=== PATIENT | female | born 1990 | race Caucasian/White ===

== ENCOUNTER 2019-03-31 07:04 | Inpatient (IN) | payer MEDICAID ==
[2019-03-31] MEDS ORDERED: Lactated Ringer's 1,000 ML IV ONE (07:25)
[2019-03-31] MEDS ORDERED: Lactated Ringer's 1,000 ML IV SCH (07:30)
[2019-03-31] MEDS ORDERED: OXYTOCIN/0.9 % NS 20 UNIT/1,000 ML BAG IV ONE (07:38)
[2019-03-31] MEDS ORDERED: Oxytocin 30 UNIT in NS 500 ml 30 UNITS/500 ML BAG IV ONE (07:38)
[2019-03-31] MEDS ORDERED: ceFAZolin 2 GM in Sodium Chloride 0.9% 100 ML IVPB ONE (07:45)
[2019-03-31 07:48] VITALS: O2SAT 100
[2019-03-31 07:58] LABS: BASO # 0.1 K/uL (0.0-0.2); BASO % 1.1 % (0.0-2.0); EOS # 0.1 K/uL (0.0-0.7); EOS % 0.7 % (0.0-4.0); HEMOGLOBIN 11.4 g/dL (12.0-16.0); LYMPH # 1.3 K/uL (1.0-4.3); LYMPH % 17.4 % (20.0-40.0); MEAN CELL VOLUME 81.2 fl (81.0-99.0); MEAN CORPUSCULAR HEMOGLOBIN 26.6 pg (27.0-31.0); MEAN CORPUSCULAR HGB CONC 32.8 g/dL (33.0-37.0); MEAN PLATELET VOLUME 9.6 fl (7.2-11.7); MONO # 0.7 K/uL (0.0-0.8); MONO % 8.7 % (0.0-10.0); NEUT # 5.4 K/uL (1.8-7.0); NEUT % 72.1 % (50.0-75.0); NRBC % 0.1 % (0.0-0.0); RBC 4.29 Mil/uL (3.80-5.20); RED CELL DISTRIBUTION WIDTH 15.1 % (11.5-14.5); WHITE BLOOD COUNT 7.5 K/uL (4.8-10.8)
[2019-03-31] MEDS ORDERED: Lidocaine 1% Inj (20ml) ONE (10:58)
[2019-03-31] MEDS ORDERED: Morphine 5 mg/10 ml preservative-free Inj(Duramorph) ONE (11:21)
[2019-03-31] MEDS ORDERED: Bupivacaine 0.25% 300 ML in Sodium Chloride 0.9% 300 ML IS ONE ×2 (11:30→13:06)
--- NOTE | 2019-03-31 12:37 | OBADHP ---
Datetime: 03/31/2019 07:30 Admit Comment, IP Provider: 28 y/o female at 40 wks GA presents to L_D for a scheduled c-sectio n due to macrosomia. Patient denies VF, VB. Endorses movements. Does not have any complaints at this time. OB: Dr. Tran Pmhx: denies HomeRx: vitamins Allergies: denies Socialhx: denies toxic habits SurgHx: denies Famhx: Maternal grandmother w/ hx of HTN ROS: all systems reviewed and negative except per HPI PhysicalExam: Gen: No acute distress Heart: S1/S2 present, RRR Lungs: normal breathing effort, clear to auscultation bilaterally Abd: Gravid, normal bowel sounds, soft, non-tender Extremities: no swelling/erythema/tenderness Psych: appropriate mood, good eye contact Assessment and Plan 28 y/o female at 40 wks IUP GBS neg, HIV neg, RPR neg, HBsAg neg, GC/C neg, rubella immune, O+ ab- Admit to LD cbc and type and screen Ancef 2gm IV Anesthesiology consulted NPO SCDs Case discussed w/ attending bee Bryant Pelvic Type - PN: Not Done Extremities - PN: Normal Abdomen - PN: Normal Back - PN: Not Done Breast - PN: Not Done Lungs - PN: Normal Heart - PN: Normal Thyroid - PN: Not Done Neurologic - PN: Not Done HEENT - PN: Not Done General - PN: Normal Weight - Estimated: 3586 FHR - Baseline A Provider: 140 Contraction Comments Provider: occasional Gestation - Est Wks by US: 40.0 IP Hx Assessment: The History has been Reviewed and is Current Vital Signs Provider: Reviewed; Within Normal Limits IP Chief Complaint: Scheduled Section NICHD Variability Prov Fetus A: Moderate 6-25bpm NICHD Decel Fetus A IP Provider: None Genitourinary Exam: Normal DTRs - PN: Not Done IP Adm Impression: Term, intrauterine IP Admit Plan: Admit to unit; Initiate Section protocol
[2019-03-31] MEDS ORDERED: Oxycodone/Acetaminophen 5/325 mg Tab PO PRN ×3 (12:43→15:41)
--- NOTE | 2019-03-31 12:45 | OBDS ---
DELIVERY PERSONNEL Delivery Doctor: Erwin Tran MD Scrub Nurse: Rika Jamison OBT Office Machine Service Supervisor: Berta Simpson RN Anesthesiologist: MATERNAL INFORMATION Delivery Anesthesia: Spinal Medications in Delivery: Pitocin 30 Placenta Cultured: No Maternal Complications: None Provider Comments: Primary low flap transverse section via Pfannenstiel incision. Patient delivered viable infant male with Apgars of 5 and 9 at 1 and 5 minutes respectively. Norm al uterus, normal tubes and ovaries bilaterally. Fluids 1600 cc lactated Ringer's Estimated blood loss 800 cc Urine 300 cc of clear urine No complications Refer to dictation LABOR INFORMATION Group B Beta Strep: Negative STAGES OF LABOR Stage 3 hrs: 0 Stage 3 min: 1 CSECTION DELIVERY Primary Indication: Other Other Primary Indication: Macrosomia Secondary Indication: Other Other Secondary Indication: Primary elective Uterine Closure: Double-layer closure BABY A INFORMATION Infant Delivery Date/Time: 03/31/2019 11:40 Method of Delivery: Born in Route : No : N/A Forceps: N/A Vacuum Extraction: N/A Shoulder Dystocia : No SHOULDER DYSTOCIA BABY A Delivery Date/Time: 03/31/2019 11:40 PRESENTATION/POSITION BABY A Presentation: Cephalic Cephalic Presentation: Vertex Breech Presentation: N/A PLACENTA INFORMATION BABY A Placenta Delivery Time : 03/31/2019 11:41 Placenta Method of Delivery: Spontaneous Placenta Status: Delivered SCORES BABY A Heart Rate 1 min: >100 bpm Resp Effort 1 min: Absent Reflex Irritability 1 min: Grimace Muscle Tone 1 min: Active Motion Color 1 min: Blue/Pale Resuscitation Effort 1 min: Tactile Stimulation; Oxygen; PPV/NCPAP SCORE 1 MIN: 5 Heart Rate 5 min: >100 bpm Resp Effort 5 min: Good Cry Reflex Irritability 5 min: Cough or Sneeze or Pulls Away Muscle Tone 5 min: Active Motion Color 5 min: Body [place], Extremities Blue Resuscitation Effort 5 min: Tactile Stimulation; Oxygen; PPV/NCPAP SCORE 5 MIN: 9 INFANT INFORMATION BABY A Gestational Age at Delivery: 40.0 Gestational Status: Term Outcome : Liveborn Infant Condition : Stable Sex: Male IDENTIFICATION/MEDS BABY A ID Band Number: [id number] ID Band Location: Left Leg; Left Arm WEIGHT/LENGTH BABY A Birthweight (gms): 4290 Weight (lb): 9 Infant Weight (oz): 7 CORD INFORMATION BABY A No. Cord Vessels: 3 Nuchal Cord : N/A Cord Blood Taken: N/A Suction: Mouth; Nose ASSESSMENT BABY A Infant Complications: Meconium Physical Findings at Delivery: Within Normal Limits Infant Respirations: Intercostal Retractions E Learning Developer/ALS Called : No Infant Care By: Devika Sage/Nisreen Transferred To: NICU
--- NOTE | 2019-03-31 12:59 | OBDS ---
DELIVERY PERSONNEL Delivery Doctor: Erwin Tran MD Scrub Nurse: Rika Jamison OBT Php Engineer: Berta Simpson RN Anesthesiologist: MATERNAL INFORMATION Delivery Anesthesia: Spinal Medications in Delivery: Pitocin 30 Placenta Cultured: No Maternal Complications: None Provider Comments: Primary low flap transverse section via Pfannenstiel incision. Patient delivered viable infant male with Apgars of 5 and 9 at 1 and 5 minutes respectively. Norm al uterus, normal tubes and ovaries bilaterally. Fluids 1600 cc lactated Ringer's Estimated blood loss 800 cc Urine 300 cc of clear urine No complications Refer to dictation LABOR INFORMATION Group B Beta Strep: Negative STAGES OF LABOR Stage 3 hrs: 0 Stage 3 min: 1 CSECTION DELIVERY Primary Indication: Other Other Primary Indication: Macrosomia Secondary Indication: Other Other Secondary Indication: Primary elective Uterine Closure: Double-layer closure BABY A INFORMATION Infant Delivery Date/Time: 03/31/2019 11:40 Method of Delivery: Born in Route : No : N/A Forceps: N/A Vacuum Extraction: N/A Shoulder Dystocia : No SHOULDER DYSTOCIA BABY A Delivery Date/Time: 03/31/2019 11:40 PRESENTATION/POSITION BABY A Presentation: Cephalic Cephalic Presentation: Vertex Breech Presentation: N/A PLACENTA INFORMATION BABY A Placenta Delivery Time : 03/31/2019 11:41 Placenta Method of Delivery: Spontaneous Placenta Status: Delivered SCORES BABY A Heart Rate 1 min: >100 bpm Resp Effort 1 min: Absent Reflex Irritability 1 min: Grimace Muscle Tone 1 min: Active Motion Color 1 min: Blue/Pale Resuscitation Effort 1 min: Tactile Stimulation; Oxygen; PPV/NCPAP SCORE 1 MIN: 5 Heart Rate 5 min: >100 bpm Resp Effort 5 min: Good Cry Reflex Irritability 5 min: Cough or Sneeze or Pulls Away Muscle Tone 5 min: Active Motion Color 5 min: Body [place], Extremities Blue Resuscitation Effort 5 min: Tactile Stimulation; Oxygen; PPV/NCPAP SCORE 5 MIN: 9 INFANT INFORMATION BABY A Gestational Age at Delivery: 40.0 Gestational Status: Term Outcome : Liveborn Infant Condition : Stable Sex: Male IDENTIFICATION/MEDS BABY A ID Band Number: [id number] ID Band Location: Left Leg; Left Arm WEIGHT/LENGTH BABY A Birthweight (gms): 4290 Weight (lb): 9 Infant Weight (oz): 7 CORD INFORMATION BABY A No. Cord Vessels: 3 Nuchal Cord : N/A Cord Blood Taken: N/A Suction: Mouth; Nose ASSESSMENT BABY A Infant Complications: Meconium Physical Findings at Delivery: Within Normal Limits Infant Respirations: Intercostal Retractions [employer] Supervisor/ALS Called : No Infant Care By: Devika Sage/Nisreen Transferred To: NICU
[2019-03-31] MEDS ORDERED: Fentanyl/Bupivacaine HCl 250 ML EPI ONE (13:36)
[2019-03-31] MEDS ORDERED: DiphenhydrAMINE 50 mg/ml Inj IVP PRN ×2 (13:38→15:41)
[2019-03-31] MEDS ORDERED: Simethicone 80 mg Chewtab PO SCH (16:00)
[2019-03-31] MEDS: Lactated Ringer's 1,000 ML IV SCH (20:38)
[2019-03-31] MEDS: Simethicone 80 mg Chewtab PO SCH (21:47)
[2019-04-01] MEDS: Lactated Ringer's 1,000 ML IV SCH ×3 (00:19→05:24)
--- NOTE | 2019-04-01 00:31 | OP ---
PROCEDURE DATE: 03/31/2019 PREOPERATIVE DIAGNOSES: Macrosomia, elective primary section. POSTOPERATIVE DIAGNOSES: Macrosomia, elective primary section. OPERATION PERFORMED: Primary low-flap transverse section via Pfannenstiel incision. OPERATIVE FINDINGS: Normal uterus, normal tubes and ovaries bilaterally. A viable infant male with Apgars of 5 and 9 at 1 and 5 minutes respectively. SURGEON: Mark Tran MD. SCIENCE ANALYST: Fernie Xavier DO. Dr. Xavier was present from the beginning of the procedure to the end of the procedure. Dr. Xavier was integral in exposing the surgical field, controlling intraoperative bleeding, and manual delivery of the infant. ANESTHESIOLOGIST: Dr. Santana. ANESTHESIA: Spinal. COMPLICATIONS: None. ESTIMATED BLOOD LOSS: 800 mL. FLUIDS: 1600 mL lactated Ringers. URINE OUTPUT: 300 mL of clear urine. DESCRIPTION OF PROCEDURE: The patient was taken to the operating room where spinal anesthesia was found to be adequate. The patient was prepped and draped in normal sterile fashion in the dorsal supine position with a leftward tilt. A Pfannenstiel skin incision was made with a scalpel. This was carried down through to the underlying layer of fascia with the scalpel. Midline defect was made in the fascial layer with the scalpel. The fascial incision was then extended bilaterally with curved Medina scissors. The fascial layer was from the underlying rectus muscles both bluntly and sharply with curved Medina scissors. The rectus muscles were at the midline. The peritoneum was then identified, tented up with Mraj clamps x2, and entered sharply with Metzenbaum scissors. This peritoneal incision was then extended superiorly and inferiorly with good visualization of the urinary bladder. Bladder blade was inserted into the abdomen. The vesicouterine peritoneum was then identified, tented upward with Marj clamps x2, and entered sharply with Metzenbaum scissors. This peritoneal incision was then extended superiorly and inferiorly with good visualization of the urinary bladder. The bladder blade was inserted into the abdomen. The vesicouterine peritoneum was identified, the bladder flap was created digitally. The Freedom retractor was placed over the urinary bladder. The uterus was incised with a scalpel. The uterine incision was extended bilaterally bluntly. The infant's head was delivered atraumatically. Nose and mouth were suctioned with bulb suction. The remainder of the infant was delivered without complication. The cord was clamped and cut. The was handed off to the waiting pediatricians. Cord blood was collected. The placenta was removed manually. The uterus was cleared of all clots and debris. The uterine incision was repaired with 0 Vicryl in a running, locked fashion. The second layer with the same suture was used to imbricate the first and to obtain excellent hemostasis. Re-inspection of the uterine incision proved excellent hemostasis. The abdomen and pelvis were irrigated with copious amounts of warm normal saline. All the instruments were removed from the patient. The peritoneal layer was closed with a running stitch of 2-0 chromic. The rectus muscles were reapproximated at the midline with a running stitch of 2-0 chromic. The fascial layer was closed with a running stitch of 0 Vicryl. The skin was closed with a subcutaneous stitch of 3-0 Vicryl. The patient tolerated the procedure well. All sponge, lap count, and needle counts were correct x2. The patient was given 2 g of Ancef just prior to the beginning of the procedure. There were no complications. The patient was taken to the recovery room in awake and stable condition. Mark Tran MD
[2019-04-01] MEDS: Simethicone 80 mg Chewtab PO SCH ×5 (04:00→21:54)
[2019-04-01 06:34] LABS: HEMOGLOBIN 10.9 g/dL (12.0-16.0); MEAN CELL VOLUME 82.5 fl (81.0-99.0); MEAN CORPUSCULAR HEMOGLOBIN 27.3 pg (27.0-31.0); RBC 4.01 Mil/uL (3.80-5.20); RED CELL DISTRIBUTION WIDTH 15.1 % (11.5-14.5)
[2019-04-01] MEDS ORDERED: Multivitamin With Minerals Tab PO SCH (09:00)
[2019-04-01] MEDS: Multivitamin With Minerals Tab PO SCH (09:00)
[2019-04-01] MEDS: Oxycodone/Acetaminophen 5/325 mg Tab PO PRN (09:07)
--- NOTE | 2019-04-01 09:52 | OBPPN ---
Datetime: 04/01/2019 09:44 PP Pain Prov: Within normal limits PP Nausea Prov: Denies PP Flatus Prov: Yes PP Breasts Prov: Not Done PP Heart Prov: Normal PP Lungs Prov: Normal PP Abdomen/Uterus Prov: Normal PP Lochia Prov: Not Done PP Vulva/Perineum Prov: Not Done PP CVA Tenderness Prov: Normal PP Extremities Prov: Normal PP C/S Incision Prov: Normal PP Impression Prov: Normal progression PP Progress Note Prov: Patient doing well ambulating tolerating diet pain well controlled patient re ports minimal lochia Vital signs stable afebrile Uterus firm below the umbilicus Extremities no Homans Incision clean dry intact Postop day #1 DC IV fluids DC Craig courage ambulation, analgesia as needed Vital Signs Provider PP: Reviewed
[2019-04-02] MEDS: Simethicone 80 mg Chewtab PO SCH ×4 (04:13→22:10)
[2019-04-02] MEDS: Lactated Ringer's 1,000 ML IV SCH ×2 (08:00→16:38)
[2019-04-02] MEDS: Oxycodone/Acetaminophen 5/325 mg Tab PO PRN (09:17)
[2019-04-02] MEDS: Multivitamin With Minerals Tab PO SCH (09:18)
[2019-04-02 20:12] VITALS: BMI 35.5
[2019-04-02 21:05] LABS: BLOOD UREA NITROGEN 12 mg/dl (7-17); CALCIUM 8.4 mg/dL (8.4-10.2); GFR NON-AFRICAN AMERICAN 59
[2019-04-02] MEDS: Gentamicin 450 MG in Sodium Chloride 0.9% 250 ML IVPB SCH (22:11)
[2019-04-02] MEDS ORDERED: AMPicillin 2 GM in Sodium Chloride 0.9% 100 ML IVPB SCH (23:00)
[2019-04-03] MEDS ORDERED: Potassium Chloride 20 mEq ER Tab PO ONE (00:09)
[2019-04-03] MEDS: Simethicone 80 mg Chewtab PO SCH ×4 (06:06→22:44)
[2019-04-03] MEDS: AMPicillin 2 GM in Sodium Chloride 0.9% 100 ML IVPB SCH ×5 (06:15→17:25)
[2019-04-03] MEDS: Lactated Ringer's 1,000 ML IV SCH ×3 (09:02→23:53)
[2019-04-03] MEDS: Multivitamin With Minerals Tab PO SCH (09:09)
--- NOTE | 2019-04-03 09:19 | OBPPN ---
Datetime: 04/02/2019 06:59 PP Pain Prov: Within normal limits PP Nausea Prov: Denies PP Flatus Prov: Yes PP Breasts Prov: Normal PP Heart Prov: Normal PP Lungs Prov: Normal PP Abdomen/Uterus Prov: Normal PP Lochia Prov: Normal PP Vulva/Perineum Prov: Normal PP CVA Tenderness Prov: Normal PP Extremities Prov: Normal PP Comments Phys Exam Prov: Abdomen soft, nontender, nondistended Incision clean, dry, intact Uterus firm, below umbilicus, mild fundal tenderness PP Impression Prov: Endometritis; Increased temperature PP Plan Prov: Antibiotic therapy PP Progress Note Prov: day #2 status post , patient recovering well but currentl y with temperature 100.5. Start IV antibiotics IV fluid hydration Discussed plan with patient all patient questions answered. IP PP Procedures: None Vital Signs Provider PP: Reviewed Vital Signs Provider Details PP: Temperature 100.5.
--- NOTE | 2019-04-03 11:55 | OBPPN ---
Datetime: 04/03/2019 11:50 PP Pain Prov: Within normal limits PP Nausea Prov: Denies PP Flatus Prov: Yes PP BM Prov: Yes PP Breasts Prov: Normal PP Heart Prov: Normal PP Lungs Prov: Normal PP Abdomen/Uterus Prov: Normal PP Lochia Prov: Normal PP Vulva/Perineum Prov: Normal PP CVA Tenderness Prov: Normal PP Extremities Prov: Normal PP C/S Incision Prov: Normal PP Progress Prov: Normal PP Impression Prov: Normal progression PP Plan Prov: Continue present management; Antibiotic therapy PP Progress Note Prov: She feels fine today will be continuing IV Ab. Her baby is still in Level 2 A: S/P day 3 fever - cont Ab PLAN; cont post op care; anticipate discharge in AM Vital Signs Provider PP: Reviewed; Within Normal Limits
[2019-04-03] MEDS: Gentamicin 450 MG in Sodium Chloride 0.9% 250 ML IVPB SCH (22:00)
[2019-04-04] MEDS: Simethicone 80 mg Chewtab PO SCH ×2 (04:43→09:05)
[2019-04-04] MEDS: AMPicillin 2 GM in Sodium Chloride 0.9% 100 ML IVPB SCH ×2 (05:06→12:33)
[2019-04-04] MEDS: Multivitamin With Minerals Tab PO SCH (09:05)
--- NOTE | 2019-04-04 12:19 | OBPPN ---
Datetime: 04/04/2019 12:12 PP Pain Prov: Within normal limits PP Nausea Prov: Denies PP Flatus Prov: Yes PP Breasts Prov: Normal PP Heart Prov: Normal PP Lungs Prov: Normal PP Abdomen/Uterus Prov: Normal PP Lochia Prov: Normal PP Vulva/Perineum Prov: Normal PP CVA Tenderness Prov: Normal PP Extremities Prov: Normal PP Comments Phys Exam Prov: Abd: Soft, NT, BS- present UT- Firm Incision:C, D, I PP Impression Prov: Normal progression PP Plan Prov: Discharge PP Progress Note Prov: S/P Delivery, POD #4 Treated with Antibiotics for fever. Afebrile for more than 24 hours. Clinically Stable Plan: D/C Home Follow up with Dr Tran on 04/08/19. Vital Signs Provider PP: Reviewed
--- NOTE | 2019-04-04 12:26 | OBDCSUM ---
Datetime: 04/04/2019 08:01 Discharged to, Provider: Home Follow up at, Provider: Hitesh Disch Instr Activity: Normal activity Disch Instr Diet: Regular Discharge Instructions, Provider: Routine instructions given Discharge Diagnosis, Provider: Term Delivered Discharge Time: 04/04/2019 12:21 Follow up in weeks, Provider: 1 week Disch Referrals: None Contraception discussed, Prov: Yes Discharge Comment, Provider: S/P Delivery, Treated with Antibiotics for isolated fever, Clinically Stable Discharge Diagnosis Prov Other: S/P Delivery, Treated with Antibiotics for isolated postpar renee fever, Clinically Stable Contraception after Delivery: Control Pill/Patch
[2019-04-04 17:49] VITALS: BP 126/77; PULSE 86; RESP 20; TEMP 97.8
== END 2019-04-04 12:30 | disposition home or self-care (01) | DRG 540 ==
LOC: H.EROB2 07:04 → H.L&D 07:26 → H.OB/GYN 15:40
PROVIDERS: ADMIT Obstetrics & Gynecology; ATTEND Obstetrics & Gynecology
PROC: 10D00Z1 Extraction of Products of Conception, Low, Open Approach (ICD-10-PCS; principal; 2019-03-31)
PROC: 4A1HXCZ Monitoring of Products of Conception, Cardiac Rate, External Approach (ICD-10-PCS; 2019-03-31)
DX: O36.63X0 Maternal care for excessive fetal growth, third trimester, not applicable or unspecified (principal); O48.0 Post-term pregnancy; O86.4 Pyrexia of unknown origin following delivery; Z37.0 Single live birth; O77.0 Labor and delivery complicated by meconium in amniotic fluid; Z3A.40 40 weeks gestation of pregnancy